=== PATIENT | female | born 1995 | race Caucasian/White ===

== ENCOUNTER 2016-05-21 15:36 | Emergency (ER) | payer OTHER ==
[2016-05-21 15:55] VITALS: TEMP 98.2; BMI 26.2
[2016-05-21] MEDS ORDERED: SODIUM CHLORIDE 1,000 ML IV STA (16:17)
[2016-05-21] MEDS ORDERED: ACETAMINOPHEN 325 MG TABLET (FP) PO ONE (16:17)
--- NOTE | 2016-05-21 16:41 | PDOC ---
History of Present Illness - General History Source: Patient Exam Limitations: No Limitations - History of Present Illness Initial Comments: 05/21/16 16:50 The patient is a 20 year old female, with no significant past medical history, who presents to the emergency department with lower pelvic pain, right flank pain, dysuria, hematuria and nausea. She describes her flank pain as ranging from mild to moderate, without radiation or modifying factors. She denies any sick contacts or recent travel. The patient denies chest pain, shortness of breath, headache and dizziness. Denies fever, chills, vomit, diarrhea and constipation. Denies frequency and urgency. Allergies: None Past surgical history: None reported Social history: No alcohol, tobacco or drug use reported <Akira Calderon - Last Filed: 05/21/16 19:28> - General History Source: Patient Exam Limitations: No Limitations <Wes Carrera - Last Filed: 05/21/16 19:44> - General Chief Complaint: Vaginal Sxs Stated Complaint: LOWER PELVIC PAIN, VAG BLEEDING Time Seen by Provider: 05/21/16 16:14 Past History <Akira Calderon - Last Filed: 05/21/16 19:28> - Past Medical History Thyroid Disease: No - Psycho/Social/Smoking Cessation Hx Anxiety: No Suicidal Ideation: No Smoking History: Never smoked Have you smoked in the past 12 months: No Information on smoking cessation initiated: No Hx Alcohol Use: No Drug/Substance Use Hx: No Substance Use Type: None <Wes Carrera - Last Filed: 05/21/16 19:44> - Past Medical History Allergies/Adverse Reactions: Allergies Allergy/AdvReac Type Severity Reaction Status Date / Time No Known Allergies Allergy Verified 05/21/16 15:55 Home Medications: Ambulatory Orders NK [No Known Home Medication] 05/21/16 Review of Systems - Review of Systems Able to Perform ROS?: Yes Comments:: 05/21/16 16:51 GENERAL/CONSTITUTIONAL: No fever or chills. No weakness. HEAD, EYES, EARS, NOSE AND THROAT: No change in vision. No ear pain or discharge. No sore throat. CARDIOVASCULAR: No chest pain or shortness of breath RESPIRATORY: No cough, wheezing, or hemoptysis. GASTROINTESTINAL: No nausea, vomiting, diarrhea or constipation. GENITOURINARY: +Right flank pain, lower pelvic pain, dysuria, hematuria. MUSCULOSKELETAL: No joint or muscle swelling or pain. No neck or back pain. SKIN: No rash NEUROLOGIC: No headache, vertigo, loss of consciousness, or change in strength/ sensation. ENDOCRINE: No increased thirst. No abnormal weight change HEMATOLOGIC/LYMPHATIC: No anemia, easy bleeding, or history of blood clots. ALLERGIC/IMMUNOLOGIC: No hives or skin allergy. <MaryAkira candelaria Cara - Last Filed: 05/21/16 19:28> *Physical Exam - Vital Signs Last Vital Signs Temp Pulse Resp BP Pulse Ox 98.2 F 72 18 130/90 100 05/21/16 15:50 05/21/16 15:50 05/21/16 15:50 05/21/16 15:50 05/21/16 15:50 - Physical Exam Comments: 05/21/16 16:51 GENERAL: Awake, alert, and fully oriented, in no acute distress HEAD: No signs of trauma, normocephalic, atraumatic EYES: PERRLA, EOMI, sclera anicteric, conjunctiva clear ENT: Auricles normal inspection, hearing grossly normal, nares patent, oropharynx clear without exudates. Moist mucosa NECK: Normal ROM, supple, no lymphadenopathy, JVD, or masses LUNGS: No distress, speaks full sentences, clear to auscultation bilaterally HEART: Regular rate and rhythm, normal S1 and S2, no murmurs, rubs or gallops, peripheral pulses normal and equal bilaterally. ABDOMEN: +Right flank tenderness. Soft, normoactive bowel sounds. No guarding, no rebound. No masses EXTREMITIES: Normal inspection, Normal range of motion, no edema. No clubbing or cyanosis. NEUROLOGICAL: Cranial nerves II through XII grossly intact. Normal speech, normal gait, no focal sensorimotor deficits SKIN: Warm, Dry, normal turgor, no rashes or lesions noted. PELVIC EXAM: +Cottage cheese discharge. No adnexal or CMT tenderness. Ox is closed. <MaryAlice candelariajesus Marroquin - Last Filed: 05/21/16 19:28> - Vital Signs Last Vital Signs Temp Pulse Resp BP Pulse Ox 98.2 F 72 18 130/90 100 05/21/16 15:50 05/21/16 15:50 05/21/16 15:50 05/21/16 15:50 05/21/16 15:50 <Wes Carrera - Last Filed: 05/21/16 19:44> ED Treatment Course - LABORATORY CBC & Chemistry Diagram: 05/21/16 16:40 05/21/16 16:40 - RADIOLOGY Radiograph Interpretation: 05/21/16 19:28 Kidney Ultrasound Reviewed by: Dr. Mohit Prince Impression: Negative exam. No sonographic abnormality is identified. <Akira Calderon - Last Filed: 05/21/16 19:28> - LABORATORY CBC & Chemistry Diagram: 05/21/16 16:40 05/21/16 16:40 <Wes Carrera - Last Filed: 05/21/16 19:44> Medical Decision Making - Medical Decision Making 05/21/16 16:40 A portion of this note was written by my scribe, under my supervision. Vital Signs Temp Pulse Resp BP Pulse Ox 98.2 F 72 18 130/90 100 05/21/16 15:50 05/21/16 15:50 05/21/16 15:50 05/21/16 15:50 05/21/16 15:50 20 year old female with no past medical history presents with hematuria, dysuria with R flank pain since yesterday. + nausea but denies vomiting, fever. R/o pyelonephritis, cystitis. Labs, UA, IVF, and reassess. 05/21/16 19:36 CBC, BMP 05/21/16 16:40 05/21/16 16:40 CMP Sodium 142 mmol/L (136-145) 05/21/16 16:40 Potassium 4.1 mmol/L (3.5-5.1) 05/21/16 16:40 Chloride 108 mmol/L (98-107) H 05/21/16 16:40 Carbon Dioxide 28 mmol/L (21-32) 05/21/16 16:40 Anion Gap 6 (8-16) L 05/21/16 16:40 BUN 11 mg/dL (7-18) 05/21/16 16:40 Creatinine 0.8 mg/dL (0.55-1.02) 05/21/16 16:40 Creat Clearance w eGFR > 60 (>60) 05/21/16 16:40 Random Glucose 86 mg/dL (74-106) 05/21/16 16:40 Calcium 9.3 mg/dL (8.5-10.1) 05/21/16 16:40 Total Bilirubin 0.4 mg/dL (0.2-1.0) 05/21/16 16:40 AST 11 U/L (15-37) L 05/21/16 16:40 ALT 18 U/L (12-78) 05/21/16 16:40 Alkaline Phosphatase 57 U/L (45-117) 05/21/16 16:40 Total Protein 7.0 g/dl (6.4-8.2) 05/21/16 16:40 Albumin 4.2 g/dl (3.4-5.0) 05/21/16 16:40 Serum , Qual Negative 05/21/16 18:08 Urine Test Results Urine Color Abby 05/21/16 16:40 Urine Appearance Slcloudy 05/21/16 16:40 Urine pH 5.0 (5.0-8.0) 05/21/16 16:40 Ur Specific [place] 1.012 (1.001-1.035) 05/21/16 16:40 Urine Protein Negative (NEGATIVE) 05/21/16 16:40 Urine Glucose (UA) Negative (NEGATIVE) 05/21/16 16:40 Urine Ketones Negative (NEGATIVE) 05/21/16 16:40 Urine Blood 1+ (NEGATIVE) H 05/21/16 16:40 Urine Nitrite Negative (NEGATIVE) 05/21/16 16:40 Urine Bilirubin Negative (NEGATIVE) 05/21/16 16:40 Ur Leukocyte Esterase Negative (NEGATIVE) 05/21/16 16:40 Urine RBC 9 /hpf (0-3) 05/21/16 16:40 Urine WBC 6 /hpf (3-5) 05/21/16 16:40 Ur Epithelial Cells Rare /hpf (FEW) 05/21/16 16:40 Urine Mucus Rare 05/21/16 16:40 Labs reviewed. Patient pelvic exam demonstrated a cottage cheese discharge consistent with a vaginal yeast infection. Patient was released test negative so was given Diflucan. Patient was noted to have no urinary tract infection. There was 1+ blood concerning for renal colic. Ultrasound obtained of the kidneys retention acute findings. I suspect that the patient has small renal colic stones not observed on the ultrasound. Given that the patient is otherwise comfortable and not in distress, we'll treat with supportive care with NSAIDs. We'll give a referral to a primary care physician. Return precautions given including worsening hematuria or uncontrollable pain. I discussed the physical exam findings, ancillary test results and final diagnoses with the patient. I answered all of the patient's questions. The patient was satisfied with the care received and felt comfortable with the discharge plan and treatment plan. The patient will call their primary care physician within 24 hours to arrange follow-up and will return to the Emergency Department with any new, persistant or worsening symptoms. <Wes Carrera - Last Filed: 05/21/16 19:44> *DC/Admit/Observation/Transfer - Attestations Scribe Attestion: 05/21/16 16:51 Documentation prepared by Akira Calderon, acting as curator medical museum for Wes Carrera MD. <Akira Calderon - Last Filed: 05/21/16 19:28> - Discharge Dispostion Admit: No <Wes Carrera - Last Filed: 05/21/16 19:44> Diagnosis at time of Disposition: Vaginal yeast infection, Hematuria - Discharge Dispostion Disposition: HOME Condition at time of disposition: Improved - Patient Instructions Printed Discharge Instructions: DI for Vaginal Yeast Infection, DI for Hematuria Additional Instructions: The kidney ultrasound demonstrated no findings. It may be very well possible that you have very small kidney stones. It may take several days before you get better. Take 500 mg naproxen every 12 hours as needed for pain. You also had a vaginal yeast infection, which we had given you fluconazole. If you develop worsening bleeding or severe abdominal pain, please return to the ER for further evaluation.
[2016-05-21 16:47] LABS: BASOPHIL 0.5 % (0-2.0); EOSINOPHIL 1.1 % (0-4.5); MCHC 32.2 g/dl (32.0-36.0); MEAN CELL VOLUME 77.5 fl (80-96); MEAN PLT VOLUME 7.8 fl (7.5-11.1); NEUTROPHILS 58.5 % (42.8-82.8); PLATELET COUNT 243 K/MM3 (134-434); RDW 13.6 % (11.6-15.6); WHITE BLOOD COUNT 9.4 K/mm3 (4.0-10.0)
[2016-05-21 16:51] LABS: URINE APPEARANCE SLCLOUDY; URINE BILIRUBIN NEGATIVE (NEGATIVE); URINE COLOR AMBER; URINE GLUCOSE (UA) NEGATIVE (NEGATIVE); URINE KETONE NEGATIVE (NEGATIVE); URINE LEUK ESTERASE NEGATIVE (NEGATIVE); URINE NITRITE NEGATIVE (NEGATIVE); URINE PROTEIN NEGATIVE (NEGATIVE); URINE UROBILINOGEN NEGATIVE E.U./dl (0.2-1.0)
[2016-05-21 16:59] LABS: URINE BLOOD 1+ (NEGATIVE)
[2016-05-21 17:01] LABS: URINE MUCUS RARE; URINE RBC 9 /hpf (0-3); URINE WBC 6 /hpf (3-5)
[2016-05-21] MEDS ORDERED: ACETAMINOPHEN 325 MG TABLET (FP) ONE (17:06)
[2016-05-21 17:19] LABS: ALBUMIN 4.2 g/dl (3.4-5.0); ANION GAP 6 (8-16); CALCIUM 9.3 mg/dL (8.5-10.1); CO2 28 mmol/L (21-32); GLUCOSE,RANDOM 86 mg/dL (74-106)
[2016-05-21 17:24] LABS: ALK PHOS 57 U/L (45-117); BILIRUBIN,TOTAL 0.4 mg/dL (0.2-1.0); CREATININE 0.8 mg/dL (0.55-1.02); SGOT/AST 11 U/L (15-37); SGPT/ALT 18 U/L (12-78)
[2016-05-21] MEDS ORDERED: FLUCONAZOLE 50 MG TABLET PO ONE (18:17)
[2016-05-21] MEDS ORDERED: FLUCONAZOLE 100 MG TABLET (UD) ONE (18:20)
[2016-05-21] MEDS ORDERED: NAPROXEN 500 MG TABLET (FP) PO ONE (19:36)
[2016-05-21] MEDS ORDERED: NAPROXEN 500 MG TABLET (FP) ONE (19:52)
[2016-05-21 19:59] VITALS: BP 130/70; PULSE 82
== END 2016-05-21 20:00 | disposition home or self-care (01) ==
LOC: JER 15:36
PROC: 3E0337Z Introduction of Electrolytic and Water Balance Substance into Peripheral Vein, Percutaneous Approach (ICD-10-PCS; principal; 2016-05-21)
DX: B37.3 Candidiasis of vulva and vagina (principal); R31.9 Hematuria, unspecified; R11.0 Nausea
CPT/HCPCS: 36415; 76775-TC; 80053; 81003; 81015; 84703; 85025; 87086; 96360; 99284-25